=== PATIENT | male | born 1965 ===

== ENCOUNTER 2022-04-16 05:15 | Day surgery (SDC) | payer OTHER ==
[~2022-04-16] VITALS: Ht 177.8 cm; Wt 115.7 kg
[~2022-04-16 05:15] MED LIST: ADULT LOW DOSE81 M1 PO; GABAPENTIN800 M1 PO; TELMISARTAN20 MG PO; TOPROL XL100 M1 PO
== END 2022-04-16 12:05 | disposition home or self-care (01) ==
LOC: CIR.AMB 05:15
PROVIDERS: ATTEND Urology
DX: N20.0 Calculus of kidney (principal); N21.0 Calculus in bladder; I10 Essential (primary) hypertension; Z20.822 Contact with and (suspected) exposure to COVID-19